=== PATIENT | female | born 1990 | race Hispanic/Latino ===

== ENCOUNTER 2017-11-23 21:30 | Emergency (ER) | payer OTHER, SELFPAY ==
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
[2017-11-23] MEDS ORDERED: LORazepam 2 MG/ML VIAL ONE (22:20)
[2017-11-23 22:41] LABS: BUN Blood Urea Nitrogen 5 mg/dL (7-18); Bicarbonate 28 mmol/L (21-32); Glucose Level 94 mg/dL (74-106); Potassium 3.5 mmol/L (3.5-5.1); Sodium Level 142 mmol/L (136-145)
--- NOTE | 2017-11-24 00:42 | EDPHYS ---
Physician Documentation [facility] Name: Audrey Kim Age: 27 yrs Sex: Female : 1990 Arrival Date: 11/23/2017 Time: 21:34 Bed 25 Private MD: ED Physician Raji Peralta HPI: 11/23 23:14 This 27 yrs old Female presents to ER via Wheelchair with complaints of kb Breathing Difficulty, Hands cramping. 23:17 The patient has shortness of breath during emotionally upset. Onset: The kb symptoms/episode began/occurred just prior to arrival. Duration: The symptoms are continuous. The patient's shortness of breath has no apparent modifying factors. Associated signs and symptoms: Pertinent positives: numbness in extremities, numbness to back of head, cramping of hands. Severity of symptoms: At their worst the symptoms were moderate in the emergency department the symptoms have improved. The patient has not experienced similar symptoms in the past. The patient has not recently seen a physician. 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 - Social history:: Smoking status: Patient/guardian denies using tobacco, never smoked, Smoking status: Patient/guardian denies using tobacco, never smoked, Patient uses alcohol, occasionally. - Ebola Screening: : No symptoms or risks identified at this time Patient negative for fever greater than or equal to 101.5 degrees Fahrenheit, and additional compatible Ebola Virus Disease symptoms. ROS: 23:13 Constitutional: Negative for fever, chills, and weight loss, Cardiovascular: Negative kb for chest pain, palpitations, and edema, Respiratory: Negative for shortness of breath, cough, wheezing, and pleuritic chest pain, Abdomen/GI: Negative for abdominal pain, nausea, vomiting, diarrhea, and constipation, Back: Negative for injury and pain, MS/Extremity: Negative for injury and deformity, Skin: Negative for injury, rash, and discoloration. 23:13 Neuro: Positive for numbness, tingling, cramping in hands. Exam: 23:13 Constitutional: This is a well developed, well nourished patient who is awake, alert, kb and in no acute distress. Head/Face: Normocephalic, atraumatic. ENT: Nares patent. No nasal discharge, no septal abnormalities noted. Tympanic membranes are normal and external auditory canals are clear. Oropharynx with no redness, swelling, or masses, exudates, or evidence of obstruction, uvula midline. Mucous membranes moist. Neck: Trachea midline, no thyromegaly or masses palpated, and no cervical lymphadenopathy. Supple, full range of motion without nuchal rigidity, or vertebral point tenderness. No Meningismus. Chest/axilla: Normal chest wall appearance and motion. Nontender with no deformity. No lesions are appreciated. Cardiovascular: Regular rate and rhythm with a normal S1 and S2. No gallops, murmurs, or rubs. Normal PMI, no JVD. No pulse deficits. Respiratory: Lungs have equal breath sounds bilaterally, clear to auscultation and percussion. No rales, rhonchi or wheezes noted. No increased work of breathing, no retractions or nasal flaring. Abdomen/GI: Soft, non-tender, with normal bowel sounds. No distension or tympany. No guarding or rebound. No evidence of tenderness throughout. Skin: Warm, dry with normal turgor. Normal color with no rashes, no lesions, and no evidence of cellulitis. MS/ Extremity: Pulses equal, no cyanosis. Neurovascular intact. Full, normal range of motion. Neuro: Awake and alert, GCS 15, oriented to person, place, time, and situation. Cranial nerves II-XII grossly intact. Motor strength 5/5 in all extremities. Sensory grossly intact. Cerebellar exam normal. Normal gait. 23:13 Constitutional: The patient appears anxious. Vital Signs: 21:48 BP 167 / 114; Pulse 103; Resp 22; Temp 98.2; Pulse Ox 100% on R/A; Weight 58.97 kg (R); sr5 Height 5 ft. 2 in. (157.48 cm); Pain 0/10; 21:48 BP 157 / 104; Pulse 102; Resp 20; Temp 98.2(TE); Pulse Ox 99% on R/A; tl3 23:49 BP 116 / 83; Pulse 70; Resp 18; Pulse Ox 98% ; tl3 11/24 01:05 BP 133 / 76; Pulse 63; Resp 18; Pulse Ox 98% ; tl3 11/23 21:48 Body Mass Index 23.78 (58.97 kg, 157.48 cm) sr5 MDM: 11/23 21:47 Patient medically screened. kb 23:13 Data reviewed: vital signs, nurses notes. Data interpreted: Pulse oximetry: on room air kb is 99 %. Interpretation: normal. ED course: Pt reports symptoms are better, but still having numbness and tingling in bilateral hands and back of head. . 11/24 00:34 Counseling: I had a detailed discussion with the patient and/or guardian regarding: the kb historical points, exam findings, and any diagnostic results supporting the discharge/admit diagnosis, lab results, radiology results, the need for outpatient follow up, a family practitioner, to return to the emergency department if symptoms worsen or persist or if there are any questions or concerns that arise at home. 11/23 22:03 Order name: Basic Metabolic Panel; Complete Time: 22:47 kb 11/23 23:11 Order name: CT Head Brain wo Cont kb 11/23 22:02 Order name: EKG; Complete Time: 22:02 sr5 11/23 22:02 Order name: EKG - Nurse/Tech; Complete Time: 22:02 5 11/23 22:57 Order name: Vital Signs; Complete Time: 23:48 kb Administered Medications: 11/23 22:19 Drug: Ativan 0.5 mg Route: IVP; Infused Over: 2 mins; Site: left antecubital; tl3 23:52 Follow up: Response: No adverse reaction; Anxiety decreased tl3 Disposition: 11/24 02:04 Co-signature as Attending Physician, Raji Peralta MD. rn Disposition: 11/24/17 00:42 Discharged to Home. Impression: Anxiety disorder, unspecified. - Condition is Stable. - Discharge Instructions: Hyperventilation, Panic Attacks, Fuii-cy-Kowe. - Medication Reconciliation Form, Thank You Letter, Antibiotic Education, Prescription Opioid Use form. - Family Work Release (11/24/17 17:24). bd - Follow up: Emergency Department; When: As needed; Reason: Worsening of condition. Follow up: Private Physician; When: 2 - 3 days; Reason: Recheck today's complaints, Continuance of care, Re-evaluation by your physician. Signatures: Dispatcher [employer] EDMayuri Casillas, PATIENT MONITOR-C PATIENT MONITOR-Raji Tripathi MD MD rn Emiliana, Jean, RN RN sr5 Caty Tirado RN RN tl3 Giovanna Thomas Corrections: (The following items were deleted from the chart) 01:15 00:42 11/24/2017 00:42 Discharged to Home. Impression: Anxiety disorder, unspecified. tl3 Condition is Stable. Discharge Instructions: Hyperventilation, Panic Attacks, [id number]. Forms are Medication Reconciliation Form, Thank You Letter, Antibiotic Education, Prescription Opioid Use. Follow up: Emergency Department; When: As needed; Reason: Worsening of condition. Follow up: Private Physician; When: 2 - 3 days; Reason: Recheck today's complaints, Continuance of care, Re-evaluation by your physician. kb
--- NOTE | 2017-11-24 00:42 | ER ---
Nurse's Notes [facility] Name: Audrey Kim Age: 27 yrs Sex: Female : 1990 Arrival Date: 11/23/2017 Time: 21:34 Bed 25 Private MD: Diagnosis: Anxiety disorder, unspecified Presentation: 11/23 21:46 Presenting complaint: Patient states: c/o shaking and fast breathing, started this tl3 evening in the car. Transition of care: patient was not received from another setting of care. Onset of symptoms was November 23, 2017. Risk Assessment: Do you want to hurt yourself or someone else? Patient reports no desire to harm self or others. Initial Sepsis Screen: Does the patient meet any 2 criteria? No. Patient's initial sepsis screen is negative. Does the patient have a suspected source of infection? No. Patient's initial sepsis screen is negative. Care prior to arrival: None. 21:46 Method Of Arrival: Ambulatory tl3 21:46 Acuity: LOBO 3 tl3 21:46 Presenting complaint: Patient states: shortness of breath x2 hours, started while sr5 riding in vehicle, pt tearful during triage, +carpopedal spasms, skin warm/dry/nc, AA\T\Ox4, appropriate speech, steady gait to bed. Denies pain. Denies PMH. Transition of care: patient was not received from another setting of care. Onset of symptoms was November 23, 2017 at 19:48. Risk Assessment: Do you want to hurt yourself or someone else? Patient reports no desire to harm self or others. Initial Sepsis Screen: Does the patient meet any 2 criteria? RR > 20 per min. HR > 90 bpm. Yes Does the patient have a suspected source of infection? No. Patient's initial sepsis screen is negative. Care prior to arrival: None. 21:46 Method Of Arrival: Wheelchair sr5 21:46 Acuity: LOBO 3 sr5 Triage Assessment: 21:48 General: Appears distressed, uncomfortable, well groomed, well developed, well tl3 nourished, Behavior is cooperative, appropriate for age, anxious. EENT: No signs and/or symptoms were reported regarding the EENT system. Neuro: Level of Consciousness is awake, alert, obeys commands, Oriented to person, place, time, situation, Appropriate for age. Cardiovascular: Patient's skin is warm and dry. Respiratory: Reports air hunger Airway is patent Respiratory effort is even, labored, Respiratory pattern is hyperventilation Onset: The symptoms/episode began/occurred today, the patient has moderate shortness of breath. GI: No signs and/or symptoms were reported involving the gastrointestinal system. : No signs and/or symptoms were reported regarding the genitourinary system. Derm: No signs and/or symptoms reported regarding the dermatologic system. Musculoskeletal: No signs and/or symptoms reported regarding the musculoskeletal system. 21:48 General: Appears uncomfortable, Behavior is anxious, crying. Pain: Denies pain. Neuro: sr5 Level of Consciousness is awake, alert, obeys commands, Oriented to person, place, time, situation, Gait is steady, Speech is normal, Facial symmetry appears normal. Cardiovascular: Capillary refill is brisk in bilateral fingers Patient's skin is warm and dry. Respiratory: Reports shortness of breath at rest Onset: The symptoms/episode began/occurred approx 730pm while driving , the patient has moderate shortness of breath. GI: No signs and/or symptoms were reported involving the gastrointestinal system. : No signs and/or symptoms were reported regarding the genitourinary system. Derm: No signs and/or symptoms reported regarding the dermatologic system. Musculoskeletal: carpopedal spasms noted , otherwise WNL. 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 - Social history:: Smoking status: Patient/guardian denies using tobacco, never smoked, Smoking status: Patient/guardian denies using tobacco, never smoked, Patient uses alcohol, occasionally. - Ebola Screening: : No symptoms or risks identified at this time Patient negative for fever greater than or equal to 101.5 degrees Fahrenheit, and additional compatible Ebola Virus Disease symptoms. Screenin:03 Abuse screen: Denies threats or abuse. Nutritional screening: No deficits noted. tl3 Tuberculosis screening: No symptoms or risk factors identified. Fall Risk None identified. Assessment: 20:00 Cardiovascular: Rhythm is regular. tl3 22:00 Cardiovascular: Patient's skin is warm and dry. Respiratory: Airway is patent Breath tl3 sounds are clear bilaterally. 22:03 Reassessment: No changes from previously documented assessment. tl3 23:49 Reassessment: Patient appears in no apparent distress at this time. No changes from tl3 previously documented assessment. Patient and/or family updated on plan of care and expected duration. Pain level reassessed. Patient is alert, oriented x 3, equal unlabored respirations, skin warm/dry/pink. pt resting quietly, pillow offered, no other needs at this time. 11/24 01:05 Reassessment: Patient appears in no apparent distress at this time. No changes from tl3 previously documented assessment. Patient and/or family updated on plan of care and expected duration. Pain level reassessed. Patient is alert, oriented x 3, equal unlabored respirations, skin warm/dry/pink. Vital Signs: 11/23 21:48 BP 167 / 114; Pulse 103; Resp 22; Temp 98.2; Pulse Ox 100% on R/A; Weight 58.97 kg (R); sr5 Height 5 ft. 2 in. (157.48 cm); Pain 0/10; 21:48 BP 157 / 104; Pulse 102; Resp 20; Temp 98.2(TE); Pulse Ox 99% on R/A; tl3 23:49 BP 116 / 83; Pulse 70; Resp 18; Pulse Ox 98% ; tl3 11/24 01:05 BP 133 / 76; Pulse 63; Resp 18; Pulse Ox 98% ; tl3 11/23 21:48 Body Mass Index 23.78 (58.97 kg, 157.48 cm) sr5 ED Course: 11/23 21:34 Patient arrived in ED. es 21:46 Caty Tirado, CLAUDY is Primary Nurse. tl3 21:47 Mayuri Gonzalez FNP-C is PHCP. kb 21:47 Raji Peralta MD is Attending Physician. kb 21:48 Triage completed. tl3 21:48 Arm band placed on. sr5 21:51 EKG completed in triage. Results shown to MD. sr5 22:03 Patient has correct armband on for positive identification. Bed in low position. Call tl3 light in reach. Side rails up X 1. Pulse ox on. NIBP on. 22:03 Inserted saline lock: 22 gauge in left antecubital area, using aseptic technique. tl3 22:03 No provider procedures requiring assistance completed. tl3 11/24 00:[address] via wheelchair. kw1 00:10 CT Head Brain wo Cont In Process Unspecified. EDMS 01:05 IV discontinued, intact, bleeding controlled, No redness/swelling at site. Pressure tl3 dressing applied. Administered Medications: 11/23 22:19 Drug: Ativan 0.5 mg Route: IVP; Infused Over: 2 mins; Site: left antecubital; tl3 23:52 Follow up: Response: No adverse reaction; Anxiety decreased tl3 Outcome: 11/24 00:42 Discharge ordered by . kb 01:05 Discharged to home ambulatory. tl3 01:05 Condition: good 01:05 Discharge instructions given to patient, Instructed on discharge instructions, follow up and referral plans. Demonstrated understanding of instructions, follow-up care. 01:15 Patient left the ED. tl3 Signatures: Dispatcher [employer] EDMayuri Casillas, PAYROLL AND BENEFITS ANALYST-C PAYROLL AND BENEFITS ANALYST-Juanita Murray Sam, RN RN sr5 Lady Atkins kw1 Caty Tirado, RN RN tl3 Corrections: (The following items were deleted from the chart) 11/23 23:51 23:49 Reassessment: Patient appears in no apparent distress at this time. No changes tl3 from previously documented assessment. Patient and/or family updated on plan of care and expected duration. Pain level reassessed. Patient is alert, oriented x 3, equal unlabored respirations, skin warm/dry/pink. tl3
--- NOTE | 2017-11-24 07:13 | RAD REPORT ---
EXAM DESCRIPTION: CT - Head Brain Wo Cont - 11/24/2017 5:34 am CLINICAL HISTORY: Numbness, altered mental status A preliminary report was provided at the time of the study and reviewed prior to final report. COMPARISON: None. TECHNIQUE: Axial 5 mm thick images of the head were obtained without IV contrast. All CT scans are performed using dose optimization technique as appropriate and may include automated exposure control or mA/KV adjustment according to patient size. FINDINGS: No intracranial hemorrhage, mass, edema or shift of mid-line structures. No acute infarcti on changes seen. No abnormal extra-axial fluid collections. Ventricles are normal. Mastoid air cells and visualized portions of the paranasal sinuses are clear. No acute bony findings. IMPRESSION: Negative non-contrast CT head examination.
--- NOTE | 2017-11-24 09:41 | EKG ---
Test Date: 2017-11-23 Test Time: 21:54:07 Nutritionists: KARLA MEASUREMENT RESULTS: Intervals: Rate: 86 IL: 130 QRSD: 76 QT: 354 QTc: 423 [place]: P: 51 IL: 130 QRS: 45 T: 33 INTERPRETIVE STATEMENTS: Normal sinus rhythm Normal ECG No previous ECG available for comparison Electronically Signed On 11-24-17 09:40:44 CDT by Mariusz Hernandez
== END 2017-11-24 01:15 | disposition home or self-care (01) ==
LOC: ER 21:30
DX: F41.9 Anxiety disorder, unspecified (principal)
CPT/HCPCS: 36415; 70450; 80048; 93005; 96374; 99284

== ENCOUNTER 2017-12-07 09:15 | Emergency (ER) | payer OTHER ==
--- OUTSIDE RECORDS SUMMARY | 2017-12-07 09:17 | XMS REPORT | Continuity of Care Document ---
[...] type Reported NKDA Assertion Drug Active allergy [place] Immunizations Immunization Date Given Site Status Last Updated Comments Source Results Order Name Results Value Reference Date Interpretation Comments Source Range URINE AND UA WBC 0-2 /HPF None Seen 08/10 STOOL /HPF [place] URINE AND UA Sq Epi Occasional Few /LPF 08/10 STOOL /LPF [place] URINE AND UA RBC None Seen 0 - 2 08/10 STOOL [place] (08/10/13 1:18 PM) [place] URINE AND Micro? Performed 08/10 STOOL [place] (08/10/13 1:18 PM) [place] URINE AND UA Bacteria Occasional None Seen 08/10 [place] /HPF /HPF [place] URINE AND UA Mucus None Seen None Seen 08/10 STOOL [place] (08/10/13 1:18 PM) [place] URINE AND UA Blood Negative Negative 08/10 STOOL [place] (08/10/13 1:18 PM) [place] URINE AND UA Bili Negative Negative 08/10 [place] *NA* [place] (08/10/13 1:18 PM) URINE AND UA 0.2 EU/dL 0.1 - 1.0 08/10 [place] Urobilinogen /2013 [place] URINE AND UA Nitrite Negative Negative 08/10 STOOL [place] (08/10/13 1:18 PM) [place] URINE AND UA Leuk Est Negative Negative 08/10 STOOL [place] (08/10/13 1:18 PM) [place] URINE AND UA pH 7.0 5.0 - 8.0 08/10 STOOL [place] URINE AND UA Protein Negative Negative 08/10 [place] mg/dL mg/dL [place] URINE AND UA Glucose Negative Negative 08/10 [place] mg/dL mg/dL [place] URINE AND UA Ketones Negative Negative 08/10 [place] mg/dL mg/dL [place] URINE AND UA Spec Grav 1.010 <=1.030 08/10 STOOL [place] URINE AND UA Turbidity Clear Clear 08/10 STOOL [place] (08/10/13 1:18 PM) [place] URINE AND UA Color Yellow Yellow 08/10 STOOL [place] *NA* [place] (08/10/13 1:18 PM) ELECTROLYTE AGAP 11.5 meq/L 10.0 - 08/10 S 20.0 [place] ELECTROLYTE eGFR 129 08/10 1Result Comment: The [...] 3.5 meq/L 3.5 - 5.1 08/10 S [place] ELECTROLYTE Creatinine 0.6 mg/dL 0.5 - 1.4 08/10 S Lvl [place] ELECTROLYTE Sodium Lvl 139 meq/L 135 - 145 08/10 S [place] ELECTROLYTE Chloride Lvl 105 meq/L 95 - 109 08/10 S [place] ELECTROLYTE CO2 26 meq/L 24 - 32 08/10 S [place] ELECTROLYTE Calcium Lvl 8.8 mg/dL 8.5 - 10.5 08/10 S [place] ELECTROLYTE BUN 8 mg/dL 7 - 22 08/10 S [place] ELECTROLYTE Glucose Lvl 103 mg/dL 70 - 99 08/10 2Interpretive Data: Adult reference range values reflect the clinical guidelines S of the [place] [employer]. [place] [id number] 08/10 3Interpretive Data: Reference Range: GY mIU/mL Male 0 - 5 mIU/mL [place] Non- Female 0 - 5 mIU/mL [facility] Note: hCG result should be used in [...] Hct 35.7 % 36.0 - 08/10 48.0 [place] HEMATOLOGY Hgb 12.0 g/dL 12.0 - 08/10 16.0 [place] HEMATOLOGY RBC 3.99 M/CMM 4.20 - 08/10 5.40 /2013 [place] HEMATOLOGY WBC 7.7 K/CMM 3.7 - 10.4 08/10 [place] HEMATOLOGY MPV 7.8 fL 7.4 - 10.4 08/10 [place] HEMATOLOGY RDW 13.1 % 11.5 - 08/10 MH 14.5 [place] HEMATOLOGY Platelet 249 K/CMM 133 - 450 08/10 [place] HEMATOLOGY MCH 30.1 pg 27.0 - 08/10 MH 31.0 [place] HEMATOLOGY MCHC 33.7 g/dL 32.0 - 08/10 MH 36.0 [place] HEMATOLOGY MCV 89.3 fL 81.0 - 08/10 MH 99.0 [place] HEMATOLOGY Lymphocytes # 1.4 K/CMM 1.0 - 5.5 08/10 [place] HEMATOLOGY Monocytes # 0.4 K/CMM 0.0 - 0.8 08/10 [place] HEMATOLOGY Eosinophils # 0.1 K/CMM 0.0 - 0.5 08/10 [place] HEMATOLOGY Basophils # 0.0 K/CMM 0.0 - 0.2 08/10 [place] HEMATOLOGY Segs 74.9 % 45.0 - 08/10 75.0 [place] HEMATOLOGY Lymphocytes 17.6 % 20.0 - 08/10 MH 40.0 [place] HEMATOLOGY Monocytes 5.3 % 2.0 - 12.0 08/10 [place] HEMATOLOGY Basophils 0.3 % 0.0 - 1.0 08/10 [place] HEMATOLOGY Eosinophils 1.9 % 0.0 - 4.0 08/10 [place] HEMATOLOGY Segs-Bands # 5.8 K/CMM 1.5 - 8.1 08/10 [place] BLOOD BANK ABO/Rh O POS 08/10 RESULTS [place] Preg < Preg < 14wks Pelvic ultrasound. 08/10 - 14wks sing sing gest w /2013 - [place] gest w transvag/Dop [place] transvag/Do US p US HISTORY: Trauma. Read by: Ferine Alexandra MD Dictated Date/time: 08/10/13 12:45 Electronically Signed by: Fernie Alexandra MD 08/10/13 12:51 FINAL REPORT Pelvic ultrasound performed with transabdominal imaging. IMPRESSION: 1. A single viable intrauterine fetus in variable presentation. 2. [place]-rump length measures 7.7 cm; equivalent to a [...] Comments Source Systolic (mm Hg) 118 08/10/2013 [place] Diastolic (mm Hg) 84 08/10/2013 [place] Heart Rate 16 08/10/2013 [place] Respitory Rate 100 08/10/2013 [place] Height 152.4 cm 08/10/2013 [place] BMI Calculated 23.88 08/10/2013 [place] Weight 55.455 08/10/2013 [place] Encounters Location Location Encounter Encounter Reason Attending ADM DC Status Source Details Type Number For Provider Date Date Visit [facility] [id number] Douglas Hurley 08/10 08/10 [place] [facility]2013 [facility] [place] [facility] [id number] 06/11 [facility] [place] Out[facility] [id number] 11/05 [facility]2015 [place] [facility] [id number] 01/24 [facility]2015 [place] Outpatient [id number] 02/07 [facility]2015 [place] [facility] [id number] 02/11 [facility]2015 [place] [facility] [id number] 02/25 [place] [address] [place] Procedures Procedure Code Date Perfomer Comments Source
[2017-12-07] MEDS ORDERED: KETOROLAC 30 MG/ML INJ ONE (09:45)
--- NOTE | 2017-12-07 10:01 | EDPHYS ---
Physician Documentation [facility] Name: Audrey Kim Age: 27 yrs Sex: Female : 1990 Arrival Date: 12/07/2017 Time: 09:17 Bed 15 Private MD: ED Physician Raji Peralta HPI: 12/07 09:25 This 27 yrs old Female presents to ER via Unassigned with complaints of Low kb Back Pain, Leg Pain. 09:25 The patient presents with pain that is acute, with no known mechanism of injury. The kb symptoms are located in the low back. The pain radiates to the left leg. The problem was sustained when bending over. Onset: The symptoms/episode began/occurred 2 day(s) ago. Modifying factors: The patient symptoms are alleviated by nothing, the patient symptoms are aggravated by any movement. Associated signs and symptoms: The patient has no apparent associated signs or symptoms. Severity of symptoms: At their worst the symptoms were moderate, in the emergency department the symptoms are unchanged. The patient has experienced a previous episode. The patient has not recently seen a physician. 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 - Social history:: Smoking status: Patient/guardian denies using tobacco. - Ebola Screening: : Patient negative for fever greater than or equal to 101.5 degrees Fahrenheit, and additional compatible Ebola Virus Disease symptoms. ROS: 09:24 Constitutional: Negative for fever, chills, and weight loss, Cardiovascular: Negative kb for chest pain, palpitations, and edema, Respiratory: Negative for shortness of breath, cough, wheezing, and pleuritic chest pain, Abdomen/GI: Negative for abdominal pain, nausea, vomiting, diarrhea, and constipation, : Negative for injury, bleeding, discharge, and swelling, MS/Extremity: Negative for injury and deformity, Skin: Negative for injury, rash, and discoloration, Neuro: Negative for headache, weakness, numbness, tingling, and seizure. 09:24 Back: Positive for pain at rest, pain with movement, radiated pain, of the left low back. Exam: 09:24 Constitutional: This is a well developed, well nourished patient who is awake, alert, kb and in no acute distress. Head/Face: Normocephalic, atraumatic. Chest/axilla: Normal chest wall appearance and motion. Nontender with no deformity. No lesions are appreciated. Cardiovascular: Regular rate and rhythm with a normal S1 and S2. No gallops, murmurs, or rubs. Normal PMI, no JVD. No pulse deficits. Respiratory: Lungs have equal breath sounds bilaterally, clear to auscultation and percussion. No rales, rhonchi or wheezes noted. No increased work of breathing, no retractions or nasal flaring. Abdomen/GI: Soft, non-tender, with normal bowel sounds. No distension or tympany. No guarding or rebound. No evidence of tenderness throughout. Skin: Warm, dry with normal turgor. Normal color with no rashes, no lesions, and no evidence of cellulitis. MS/ Extremity: Pulses equal, no cyanosis. Neurovascular intact. Full, normal range of motion. Neuro: Awake and alert, GCS 15, oriented to person, place, time, and situation. Cranial nerves II-XII grossly intact. Motor strength 5/5 in all extremities. Sensory grossly intact. Cerebellar exam normal. Normal gait. 09:24 Back: pain, that is moderate, of the left low back, ROM is painful, with all movement, normal spinal alignment noted. Vital Signs: 09:25 BP 139 / 83; Pulse 81; Resp 16; Temp 97.8(TE); Pulse Ox 98% on R/A; Weight 63.5 kg (R); rb1 Height 5 ft. 1 in. (154.94 cm) (R); Pain 8/10; 10:05 BP 105 / 73; Pulse 78; Resp 16; Pulse Ox 98% on R/A; Pain 7/10; rb1 09:25 Body Mass Index 26.45 (63.50 kg, 154.94 cm) rb1 MDM: 09:23 Patient medically screened. kb 09:24 Data reviewed: vital signs, nurses notes. Data interpreted: Pulse oximetry: on room air kb is 100 %. Interpretation: normal. Counseling: I had a detailed discussion with the patient and/or guardian regarding: the historical points, exam findings, and any diagnostic results supporting the discharge/admit diagnosis, the need for outpatient follow up, a family practitioner, to return to the emergency department if symptoms worsen or persist or if there are any questions or concerns that arise at home. Administered Medications: 09:43 Drug: TORadol 60 mg Route: IM; Site: left gluteus; rb1 10:02 Follow up: Response: No adverse reaction; Pain is decreased rb1 Disposition: 12:16 Co-signature as Attending Physician, Raji Peralta MD. rn Disposition: 12/07/17 10:00 Discharged to Home. Impression: Sciatica, left side. - Condition is Stable. - Discharge Instructions: Sciatica, Jurm-vh-Oxab. - Prescriptions for Cyclobenzaprine 10 mg Oral Tablet - take 1 tablet by ORAL route every 8 hours As needed; 21 tablet. Diclofenac Sodium 75 mg Oral Tablet, Delayed Release (E.C.) - take 1 tablet by ORAL route 2 times per day As needed; 30 tablet. - Medication Reconciliation Form, Thank You Letter, Antibiotic Education, Prescription Opioid Use form. - Follow up: Emergency Department; When: As needed; Reason: Worsening of condition. Follow up: Private Physician; When: 2 - 3 days; Reason: Recheck today's complaints, Continuance of care, Re-evaluation by your physician. Signatures: Mayuri Gonzalez, CLAIM ANALYST-C CLAIM ANALYST-Averyb Raji Peralta MD MD rn Barber, Rebecca, RN RN rb1 Corrections: (The following items were deleted from the chart) 10:13 10:00 12/07/2017 10:00 Discharged to Home. Impression: Sciatica, left side. Condition rb1 is Stable. Forms are Medication Reconciliation Form, Thank You Letter, Antibiotic Education, Prescription Opioid Use. Follow up: Emergency Department; When: As needed; Reason: Worsening of condition. Follow up: Private Physician; When: 2 - 3 days; Reason: Recheck today's complaints, Continuance of care, Re-evaluation by your physician. kb
--- NOTE | 2017-12-07 10:01 | ER ---
Nurse's Notes [facility] Name: Audrey Kim Age: 27 yrs Sex: Female : 1990 Arrival Date: 12/07/2017 Time: 09:17 Bed 15 Private MD: Diagnosis: Sciatica, left side Presentation: 12/07 09:25 Presenting complaint: Patient states: Pt. bent down to pick something up 2 days ago and rb1 hurt her back. Is unable to sleep due to the pain. Transition of care: patient was not received from another setting of care. Onset of symptoms was December 05, 2017. Risk Assessment: Do you want to hurt yourself or someone else? Patient reports no desire to harm self or others. Initial Sepsis Screen: Does the patient meet any 2 criteria? No. Patient's initial sepsis screen is negative. Does the patient have a suspected source of infection? No. Patient's initial sepsis screen is negative. Care prior to arrival: None. 09:25 Method Of Arrival: Wheelchair rb1 09:25 Acuity: LOBO 3 rb1 Triage Assessment: 09:25 General: Appears uncomfortable, Behavior is calm, cooperative. Pain: Complains of pain rb1 in left low back Pain radiates to left leg Pain currently is 8 out of 10 on a pain scale. Neuro: Level of Consciousness is awake, alert, obeys commands, Oriented to person, place, time, situation. Cardiovascular: Capillary refill < 3 seconds is brisk in bilateral toes. Respiratory: Airway is patent Respiratory effort is even, unlabored, Respiratory pattern is regular, symmetrical. GI: No signs and/or symptoms were reported involving the gastrointestinal system. : No signs and/or symptoms were reported regarding the genitourinary system. Derm: Skin is dry, Skin is normal, Skin temperature is warm. Musculoskeletal: Range of motion: intact in all extremities. 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 - Social history:: Smoking status: Patient/guardian denies using tobacco. - Ebola Screening: : Patient negative for fever greater than or equal to 101.5 degrees Fahrenheit, and additional compatible Ebola Virus Disease symptoms. Screenin:25 Abuse screen: Denies threats or abuse. Nutritional screening: No deficits noted. rb1 Tuberculosis screening: No symptoms or risk factors identified. Fall Risk None identified. Assessment: 09:25 General: See triage assessment. rb1 10:05 Reassessment: Patient appears in no apparent distress at this time. Patient and/or rb1 family updated on plan of care and expected duration. Pain level reassessed. Patient is alert, oriented x 3, equal unlabored respirations, skin warm/dry/pink. Vital Signs: 09:25 BP 139 / 83; Pulse 81; Resp 16; Temp 97.8(TE); Pulse Ox 98% on R/A; Weight 63.5 kg (R); rb1 Height 5 ft. 1 in. (154.94 cm) (R); Pain 8/10; 10:05 BP 105 / 73; Pulse 78; Resp 16; Pulse Ox 98% on R/A; Pain 7/10; rb1 09:25 Body Mass Index 26.45 (63.50 kg, 154.94 cm) rb1 ED Course: 09:17 Patient arrived in ED. as 09:19 [facility]C [facility] kb 09:19 Raji Peralta MD is Attending Physician. kb 09:20 Wendy Zelaya, RN is Primary Nurse. rb1 09:25 Arm band placed on right wrist. rb1 09:25 Patient has correct armband on for positive identification. Bed in low position. Call rb1 light in reach. Side rails up X 1. Pulse ox on. NIBP on. 09:49 Triage completed. rb1 10:07 No provider procedures requiring assistance completed. Patient did not have IV access rb1 during this emergency room visit. Administered Medications: 09:43 Drug: TORadol 60 mg Route: IM; Site: left gluteus; rb1 10:02 Follow up: Response: No adverse reaction; Pain is decreased rb1 Outcome: 10:00 Discharge ordered by . kb 10:07 Discharged to home via wheelchair, with family. rb1 10:07 Condition: stable 10:07 Discharge instructions given to patient, Instructed on discharge instructions, follow up and referral plans. medication usage, Demonstrated understanding of instructions, follow-up care, medications, Prescriptions given X 2. 10:07 Patient left the ED. rb1 Signatures: Mayuri Gonzalez, RODRÍGUEZ-C RODRÍGUEZ-Chelly Mendieta Rebecca, RN RN rb1 Corrections: (The following items were deleted from the chart) 10:13 10:13 Patient left the ED. rb1 rb1
== END 2017-12-07 10:13 | disposition home or self-care (01) ==
LOC: ER 09:15
DX: M54.42 Lumbago with sciatica, left side (principal); F41.9 Anxiety disorder, unspecified
CPT/HCPCS: 96372; 99283